=== PATIENT | female | born 1930 | race African-American/Black ===

== ENCOUNTER 2018-01-09 05:12 | Emergency (ER) | payer MEDICARE, BC ==
[~2018-01-09] VITALS: Ht 157.5 cm; Wt 58.0 kg
[~2018-01-09 05:12] MED LIST: ALPR0.5T PO; CARV25TA47 PO; CLON0.2T PO; DICY20TA11 PO; ESOM40CA PO; HYDR-519 PO; LEVO112T2 PO; PILOCARPINE HCL; PR125 PO
[2018-01-09 07:22] LABS: HEMOGLOBIN. 12.1 g/dL (12.0-16.0); MEAN CORPUSCULAR HEMOGLOBIN 30.2 pg (28.0-32.0); MEAN CORPUSCULAR VOLUME 89.9 fL (81.0-99.0); MEAN PLATELET VOLUME 7.3 fl (7.4-10.4); PLATELET 260 x1000/uL (130-400); RED BLOOD CELL COUNT 4.01 mill/uL (4.2-5.4); RED CELL DISTRIBUTION WIDTH 16.2 % (11.6-14.6)
[2018-01-09 07:27] LABS: CHLORIDE 102 mEq/L (98-107)
[2018-01-09 07:34] LABS: PLATELET ESTIMATE NORMAL
[2018-01-09 08:02] VITALS: BP 173/89
== END 2018-01-09 09:19 | disposition home or self-care (01) ==
LOC: ER 05:12
DX: R00.2 Palpitations (principal); R07.2 Precordial pain; R51 Headache; I10 Essential (primary) hypertension; M19.90 Unspecified osteoarthritis, unspecified site; Z88.8 Allergy status to other drugs, medicaments and biological substances
CPT/HCPCS: 36415; 80048; 84484; 85025; 93005; 99285